=== PATIENT | male | born 1965 | race Caucasian/White ===

== ENCOUNTER 2018-03-26 13:01 | Inpatient (IN) | payer SELFPAY ==
--- NOTE | 2018-03-26 15:13 | ER Document Report ---
ED General - General Mode of Arrival: Ambulatory Information source: Patient TRAVEL OUTSIDE OF THE [place] IN LAST 30 DAYS: No <HOUSTON SALGUERO - Last Filed: 03/26/18 16:45> <JOHNY ZARATE - Last Filed: 03/26/18 21:06> - General Chief Complaint: Leg Swelling Stated Complaint: LEFT LEG PAIN Time Seen by Provider: 03/26/18 14:58 Notes: Patient is a 53-year-old male who presents to the emergency today after signing out AGAINST MEDICAL ADVICE approximately 3-4 hours prior for left lower extremity cellulitis. Patient states he had to go home to check on his animals and that was his reason for signing out. Patient complains of shortness of breath and left lower extremity swelling and erythema. (HOUSTON SALGUERO) - Related Data Allergies/Adverse Reactions: No Known Allergies Allergy (Verified 03/26/18 13:16) Past Medical History - General Information source: Patient - Social History Smoking Status: Former Smoker Cigarette use (# per day): No Chew tobacco use (# tins/day): No Frequency of alcohol use: Occasional Drug Abuse: None Lives with: Family Family History: Reviewed & Not Pertinent Patient has suicidal ideation: No Patient has homicidal ideation: No - Past Medical History Cardiac Medical History: Reports: Hx Hypertension Pulmonary Medical History: Reports: Hx Bronchitis, Hx COPD Renal/ Medical History: Reports: Hx Kidney Stones GI Medical History: Reports: Hx Hiatal Hernia Past Surgical History: Reports: Hx Orthopedic Surgery - Immunizations Immunizations up to date: No Hx Diphtheria, Pertussis, Tetanus Vaccination: Yes <HOUSTON SALGUERO - Last Filed: 03/26/18 16:45> Review of Systems - Review of Systems Constitutional: No symptoms reported EENT: No symptoms reported Cardiovascular: No symptoms reported Respiratory: See HPI, Short of breath Gastrointestinal: No symptoms reported Genitourinary: No symptoms reported Male Genitourinary: No symptoms reported Musculoskeletal: See HPI, Leg swelling - LLE Skin: No symptoms reported Hematologic/Lymphatic: No symptoms reported Neurological/Psychological: No symptoms reported -: Yes All other systems reviewed and negative <HOUSTON SALGUERO - Last Filed: 03/26/18 16:45> Physical Exam <HOUSTON SALGUERO - Last Filed: 03/26/18 16:45> <JOHNY ZARATE - Last Filed: 03/26/18 21:06> - Vital signs Vitals: Temp Pulse Resp BP Pulse Ox 97.9 F 93 20 127/74 H 94 03/26/18 13:08 03/26/18 13:08 03/26/18 13:08 03/26/18 13:08 03/26/18 13:08 - Notes Notes: PHYSICAL EXAM GENERAL: Alert, interacts well. No acute distress. HEAD: Normocephalic, atraumatic. EYES: Pupils equal, round, and reactive to light. Extraocular movements intact. ENT: Oral mucosa moist, tongue midline. NECK: Full range of motion. Supple. Trachea midline. LUNGS: Tachypneic. Clear to auscultation bilaterally, no wheezes, rales, or rhonchi. No respiratory distress. HEART: Tachycardic and regular rhythm. No murmurs, gallops, or rubs. ABDOMEN: Soft, non-tender. Non-distended. Bowel sounds present in all 4 quadrants. No guarding, rigidity, or rebound. EXTREMITIES: Moves all 4 extremities spontaneously. No edema, radial and dorsalis pedis pulses 2/4 bilaterally. No cyanosis. NEUROLOGICAL: Alert and oriented x3. Normal speech. PSYCH: Normal affect, normal mood. SKIN: Warm, dry, normal turgor. Left lower extremity erythema extending past the marked area, mostly over the lateral aspect. 3+ pitting edema to left lower extremity. (HOUSTON SALGUERO) Course <HOUSTON SALGUERO - Last Filed: 03/26/18 16:45> <JOHNY ZARATE - Last Filed: 03/26/18 21:06> - Re-evaluation Re-evalutation: 03/26/18 15:14 Patient had left AGAINST MEDICAL ADVICE approximately 4 hours ago now returns to the emergency department after having taking care of his animals. States he feels somewhat more short of breath than when he left otherwise unchanged. Physical exam shows that he has a dramatic amount of erythema streaking up the lateral aspect of his left leg than 20 cm past the arias indicating the edge of the cellulitis when he left the hospital. Discussed the patient with Dr. Rios who states the only other piece of workup that he needed was a chest x- ray when he left AGAINST MEDICAL ADVICE otherwise he simply needs to be readmitted to continue IV antibiotics. Patient will be admitted to Dr. Rios who was already accepted his admission. He is currently in pit 3 in the emergency department so I will call her back when he is assigned a bed in the main emergency department where she can examine him. He is not due for any doses of IV antibiotics at this time. Blood work was performed this morning and does not need to be repeated at this time per Dr. moore only. (JOHNY ZARATE) - Vital Signs Vital signs: Temp Pulse Resp BP Pulse Ox 97.9 F 86 18 127/74 H 94 03/26/18 13:08 03/26/18 20:26 03/26/18 20:26 03/26/18 13:08 03/26/18 20:26 Discharge <HOUSTON SALGUERO - Last Filed: 03/26/18 16:45> - Discharge Admitting Provider: Hospitalist - [facility] Admitted: Medical Floor <JOHNY ZARATE - Last Filed: 03/26/18 21:06> - Discharge Clinical Impression: Cellulitis of left lower extremity Condition: Fair Disposition: ADMITTED INPATIENT Scribe Attestation: 03/26/18 21:06 I personally performed the services described in the documentation, reviewed and edited the documentation which was dictated to the scribe in my presence, and it accurately records my words and actions. (JOHNY ZARATE) Scribe Documentation - Scribe Written by William:: William Irizarry, 03/26/2018 1651 acting as scribe for :: Gia <HOUSTON SALGUERO - Last Filed: 03/26/18 16:45>
--- NOTE | 2018-03-26 16:13 | RADIOLOGY REPORT (SQ) ---
EXAM DESCRIPTION: CHEST 2 VIEWS COMPLETED DATE/TIME: 03/26/2018 3:53 pm REASON FOR STUDY: SOB COMPARISON: AP chest 03/20/2018 EXAM PARAMETERS: NUMBER OF VIEWS: two views TECHNIQUE: Digital Frontal and Lateral radiographic views of the chest acquired. RADIATION DOSE: NA LIMITATIONS: none FINDINGS: LUNGS AND PLEURA: No opacities, masses or pneumothorax. No pleural effusion. MEDIASTINUM AND HILAR STRUCTURES: No masses or contour abnormalities. HEART AND VASCULAR STRUCTURES: Heart normal size. No evidence for failure. BONES: No acute findings. HARDWARE: None in the chest. OTHER: No other significant finding. IMPRESSION: NO ACUTE RADIOGRAPHIC FINDING IN THE CHEST. TECHNICAL DOCUMENTATION: JOB ID: [id number] [employer]- All Rights Reserved Reading location - IP/workstation name: [email or web address]
[2018-03-26] MEDS ORDERED: IPRATROPIUM/ALBUTEROL 0.5-2.5 MG/3 ML AMPUL NEB PRN (17:45)
[2018-03-26] MEDS ORDERED: ONDANSETRON HCL INJ/PF 4 MG/2 ML SDV IV PRN (17:45)
[2018-03-26] MEDS ORDERED: ACETAMINOPHEN 325 MG TABLET PO PRN (17:45)
[2018-03-26] MEDS ORDERED: OXYCODONE-ACETAMINOPHEN 5-325 MG TABLET PO PRN (17:45)
[2018-03-26] MEDS ORDERED: VANCOMYCIN HCL 0 MG in DEXTROSE 5%-WATER 250 ML IV NR (18:00)
--- NOTE | 2018-03-26 20:11 | PDOC H&P ---
History of Present Illness Admission Date/PCP: 03/26/18 15:42 Patient complains of: Leg pain and swelling History of Present Illness: SENTHIL OCHOA is a 53 year old male This patient was just in this hospital this morning but decided to sign out AGAINST MEDICAL ADVICE as he wanted to go check on his dogs at home. He returns back to the hospital a few hours later back for admission. He was being treated for extensive left leg cellulitis and was initially septic but this has resolved however is still pretty significant cellulitis. He also complains of difficulty breathing with a cough and it had intermittent wheezing. Chest x-ray done today reveals no acute findings. Patient had been on Zithromax for atypical coverage Past Medical History Cardiac Medical History: Reports: Hypertension Pulmonary Medical History: Reports: Bronchitis, Chronic Obstructive Pulmonary Disease (COPD) GI Medical History: Reports: Hiatal Hernia Psychiatric Medical History: Denies: Depression Past Surgical History Past Surgical History: Reports: Orthopedic Surgery Social History Information Source: Patient Lives with: Family Smoking Status: Former Smoker Frequency of Alcohol Use: None Hx Recreational Drug Use: No Drugs: None Hx Prescription Drug Abuse: No Family History Family History: Reviewed & Not Pertinent Parental Family History Reviewed: No Children Family History Reviewed: No Sibling(s) Family History Reviewed.: Unknown Medication/Allergy Home Medications: No Home Medications 03/26/18 Allergies/Adverse Reactions: No Known Allergies Allergy (Verified 03/26/18 13:16) Review of Systems All systems: reviewed and no additional remarkable complaints except as stated Physical Exam Vital Signs: Temp Pulse Resp BP Pulse Ox 97.9 F 93 20 127/74 H 94 03/26/18 13:08 03/26/18 13:08 03/26/18 13:08 03/26/18 13:08 03/26/18 13:08 General appearance: PRESENT: no acute distress, morbidly obese, well-developed, well-nourished Head exam: PRESENT: atraumatic, normocephalic Eye exam: PRESENT: conjunctiva pink, EOMI, PERRLA. ABSENT: scleral icterus Ear exam: PRESENT: normal external ear exam Mouth exam: PRESENT: moist, tongue midline Neck exam: ABSENT: carotid bruit, JVD, lymphadenopathy, thyromegaly Respiratory exam: PRESENT: rhonchi, symmetrical, unlabored. ABSENT: rales, tachypnea, wheezes Cardiovascular exam: PRESENT: RRR. ABSENT: diastolic murmur, rubs, systolic murmur Pulses: PRESENT: normal dorsalis pedis pul Vascular exam: PRESENT: normal capillary refill GI/Abdominal exam: PRESENT: normal bowel sounds, soft. ABSENT: distended, guarding, mass, organolmegaly, rebound, tenderness Rectal exam: PRESENT: deferred Extremities exam: PRESENT: pedal edema, other - Erythematous and swollen left lower extremity extending from the ankle up to the knee with streaking of the in left thigh. ABSENT: calf tenderness, clubbing Neurological exam: PRESENT: alert, awake, oriented to person, oriented to place , oriented to time, oriented to situation, CN II-XII grossly intact. ABSENT: motor sensory deficit Psychiatric exam: PRESENT: appropriate affect, normal mood. ABSENT: homicidal ideation, suicidal ideation Skin exam: PRESENT: dry, intact, warm. ABSENT: cyanosis, rash Results Impressions: Chest X-Ray 03/26/18 15:11 IMPRESSION: NO ACUTE RADIOGRAPHIC FINDING IN THE CHEST. Assessment & Plan - Diagnosis (1) Cellulitis of left lower extremity Is this a current diagnosis for this admission?: Yes Plan: Patient had been treated with initially Unasyn which was subsequently changed to Zosyn and vancomycin added prior to signing out early on today. Cultures have been negative. Doppler sonogram was obtained which revealed no deep- seated infection or thromboembolism. I will change his antibiotic to cefepime as his infection although gradually improving is still pretty much present. His sepsis has resolved and he has spiked a recordable fever on the 16th. He needs a PICC line for vascular access (2) Bronchitis Is this a current diagnosis for this admission?: Yes Plan: Patient likely has underlying COPD. Repeat chest x-ray done today reveals no acute findings. I have added IV steroids as well as bronchodilators and Zithromax for atypical organisms coverage (3) Lymphedema of both lower extremities Is this a current diagnosis for this admission?: Yes Plan: This is chronic underlying his acute infection (4) Morbid obesity Is this a current diagnosis for this admission?: Yes Plan: Patient advised on need to lose weight - Time Time Spent: 30 to 50 Minutes Medications reviewed and adjusted accordingly: Yes Anticipated discharge: Home Within: within 72 hours - Inpatient Certification Based on my medical assessment, after consideration of the patient's comorbidities, presenting symptoms, or acuity I expect that the services needed warrant INPATIENT care.: Yes Medical Necessity: Need for IV Antibiotics
[2018-03-26] MEDS: ALBUTEROL SULFATE 0.083% NEB 2.5 MG/3 ML AMPUL NEB SCH (20:23)
[2018-03-26] MEDS: BENZONATATE 100 MG CAPSULE PO SCH (21:39)
[2018-03-26] MEDS: CEFEPIME 2 GM/D5W RTU 2 GM/50 ML RTUPB IV SCH (21:57)
[2018-03-26] MEDS: METHYLPREDNISOLONE INJ 40 MG/1 ML SDV IV SCH (21:57)
[2018-03-26] MEDS: VANCOMYCIN HCL 1,000 MG in DEXTROSE 5%-WATER 250 ML IV SCH (22:37)
[2018-03-27] MEDS: ALBUTEROL SULFATE 0.083% NEB 2.5 MG/3 ML AMPUL NEB SCH ×4 (01:47→20:00)
[2018-03-27] MEDS: VANCOMYCIN HCL 1,000 MG in DEXTROSE 5%-WATER 250 ML IV SCH ×3 (05:33→22:11)
[2018-03-27] MEDS: METHYLPREDNISOLONE INJ 40 MG/1 ML SDV IV SCH ×3 (05:33→21:28)
[2018-03-27] MEDS: BENZONATATE 100 MG CAPSULE PO SCH ×3 (05:33→21:27)
[2018-03-27 06:50] LABS: HEMOGLOBIN 11.7 g/dL (13.5-17.0); MEAN CORPUSCULAR HEMOGLOBIN 32.5 pg (27.0-33.4); MEAN CORPUSCULAR HGB CONC 34.5 g/dL (32.0-36.0); MEAN CORPUSCULAR VOLUME 94 fl (80-97); PLATELET COUNT 376 10^3/uL (150-450); RED BLOOD COUNT 3.62 10^6/uL (4.35-5.55); RED CELL DISTRIBUTION WIDTH 14.9 % (11.5-14.0); WHITE BLOOD COUNT 9.2 10^3/uL (4.0-10.5)
[2018-03-27 06:55] LABS: ANION GAP 8 (5-19); BLOOD UREA NITROGEN 20 mg/dL (7-20); CALCIUM 8.7 mg/dL (8.4-10.2); CARBON DIOXIDE 26 mmol/L (22-30); CHLORIDE 109 mmol/L (98-107); GLUCOSE 160 mg/dL (75-110); POTASSIUM 4.3 mmol/L (3.6-5.0); SODIUM 142.8 mmol/L (137-145)
[2018-03-27] MEDS: GUAIFENESIN/CODEINE PHOS 100-10 MG/ 5 ML UDC PO PRN (08:08)
--- NOTE | 2018-03-27 09:28 | RADIOLOGY REPORT (SQ) ---
EXAM DESCRIPTION: PICC INSERTION; FLUORO/CV PLACEMENT; U/S GUIDE FOR VASCULAR ACCESS COMPLETED DATE/TIME: 03/27/2018 9:02 am REASON FOR STUDY: custodial antibiotics; IV ABX; IV ACCESS COMPARISON: None. FLUOROSCOPY TIME: 19 seconds 1 digital fluoroscopic chest image and 1 ultrasound images saved to PACS. TECHNIQUE: Fluoroscopic and ultrasound guided PICC placement. LIMITATIONS: None. PROCEDURE: After written consent and assessment were obtained, the patient was brought into the fluo roscopy room and place supine on the table. Ultrasound evaluation of potential access sites were perf ormed. After successfully identifying a patent right basilic vein, the right arm was prepped and drap ed in a sterile fashion along with the ultrasound probe. The entry site was anesthetized with 1% lido felicity. A 21 gauge 7 cm needle was advanced through the skin and into the basilic vein under live ultr asound guidance. An ultrasound image was saved to PACS confirming access site. A .018 guide wire wa s then inserted through the needle and into the venous system. The needle was the removed and an 11 b lade scalpel was used to make a 1cm skin incision. A 5 fr peel-away sheath was advanced over the wir e and into the venous system. A measurement was then made using the existing wire and live fluoroscop ic guidance. The wire was then removed and the trimmed. The PICC was advanced through the peel-away s johny and into the venous system. The peel-away sheath was removed and the catheter was adhered to th e patients arm with a stat lock. The catheter was then aspirated and flushed and a sterile bandage wa s placed over the access site. A fluoroscopic spot image was saved to PACS confirming the catheter t ip within the superior vena cava. IMPRESSION: SUCCESSFUL PLACEMENT OF A 5 FR DUAL LUMEN 35 CM PICC IN THE RIGHT BASILIC VEIN. COMMENT: Patient medication list reviewed: Yes- Quality ID# 130:Eligible professional attests to doc umenting in the medical record they obtained, updated, or reviewed the patient's current medications. . Quality ID 145: Final reports for procedures using fluoroscopy that document radiation exposure carolann cam, or exposure time and number of fluorographic images (if radiation exposure indices are not avail able) Quality ID #76: The patient was prepped and draped using maximum sterile barrier technique including cap, mask, sterile gown, sterile gloves, a large sterile sheet, hand hygiene, and 2% Chlorhexidine fo r cutaneous antisepsis. When ultrasound is used, sterile ultrasound techniques are followed requiring sterile gel and sterile probes. TECHNICAL DOCUMENTATION: JOB ID: [id number] [employer]- All Rights Reserved rev-02/23 Reading location - IP/workstation name: [email or web address] [id number]
[2018-03-27] MEDS: ENOXAPARIN SODIUM INJ 40 MG/0.4 ML DISP.SYRIN SUBCUT SCH (10:58)
[2018-03-27] MEDS: AZITHROMYCIN 250 MG TABLET PO SCH (10:58)
[2018-03-27] MEDS: DOCUSATE SODIUM 100 MG CAPSULE PO SCH (10:59)
[2018-03-27] MEDS: CEFEPIME 2 GM/D5W RTU 2 GM/50 ML RTUPB IV SCH ×2 (10:59→21:38)
[2018-03-27] MEDS: NORMAL SALINE 10 ML SDV (AFTER EACH USE) IV PRN ×2 (11:18→17:34)
--- NOTE | 2018-03-27 17:22 | PDOC PROGRESS REPORT ---
Subjective Progress Note for:: 03/27/18 Subjective:: No adverse events overnight. No new complaints. No cough or shortness of breath. Said he had swelling in his legs for several months. He talked mostly about losing his job a few months ago. He has had no fevers. His appetite is been normal. Reason For Visit: CELLULITIS OF LLE,BRONCHITIS Physical Exam Vital Signs: Temp Pulse Resp BP Pulse Ox 97.9 F 83 18 131/82 H 91 L 03/27/18 11:29 03/27/18 14:30 03/27/18 14:30 03/27/18 11:29 03/27/18 14:30 Intake & Output 03/26/18 03/27/18 03/28/18 06:59 06:59 06:59 Intake Total 300 Balance 300 Weight 124.5 kg General appearance: PRESENT: no acute distress, cooperative, morbidly obese Head exam: PRESENT: atraumatic, normocephalic Respiratory exam: PRESENT: clear to auscultation kaden, symmetrical, unlabored. ABSENT: accessory muscle use, chest wall tenderness, crackles, decreased breath sounds, prolonged expiratory phas, rales, rhonchi, tachypnea, wheezes Cardiovascular exam: PRESENT: RRR, +S1, +S2. ABSENT: clicks, diastolic murmur, gallop, rubs Pulses: PRESENT: normal carotid pulses, normal radial pulses Vascular exam: PRESENT: normal capillary refill GI/Abdominal exam: PRESENT: normal bowel sounds, soft. ABSENT: ascites, diminished bowel sounds, distended, guarding, rebound Extremities exam: PRESENT: pedal edema, +2 edema, other - Hemosiderin deposition diffuse in the lower extremities below the knees bilaterally. He had left leg erythema that had receded substantially from the initial lines of demarcation drawn on admission. He had chronic lymphedema in the lower extremities bilaterally.. ABSENT: calf tenderness, clubbing, joint swelling Psychiatric exam: PRESENT: appropriate affect, normal mood Results Laboratory Results: 03/27/18 06:08 03/27/18 06:08 03/27/18 03/27/18 06:08 06:08 WBC 9.2 RBC 3.62 L Hgb 11.7 L Hct 34.0 L MCV 94 MCH 32.5 MCHC 34.5 RDW 14.9 H Plt Count 376 Sodium 142.8 Potassium 4.3 Chloride 109 H Carbon Dioxide 26 Anion Gap 8 BUN 20 Creatinine 0.92 Est GFR ( Amer) > 60 Est GFR (Non-Af Amer) > 60 Glucose 160 H Calcium 8.7 Impressions: Chest X-Ray 03/26/18 15:11 IMPRESSION: NO ACUTE RADIOGRAPHIC FINDING IN THE CHEST. Guidance Fluoroscopy 03/27/18 00:00 IMPRESSION: SUCCESSFUL PLACEMENT OF A 5 FR DUAL LUMEN 35 CM PICC IN THE RIGHT BASILIC VEIN. Interventional Vascular Procedure 03/27/18 00:00 IMPRESSION: SUCCESSFUL PLACEMENT OF A 5 FR DUAL LUMEN 35 CM PICC IN THE RIGHT BASILIC VEIN. PICC Line Insertion 03/27/18 00:00 IMPRESSION: SUCCESSFUL PLACEMENT OF A 5 FR DUAL LUMEN 35 CM PICC IN THE RIGHT BASILIC VEIN. Assessment & Plan - Diagnosis (1) Cellulitis of left lower extremity Is this a current diagnosis for this admission?: Yes Plan: Continue IV antibiotics for now. Once the erythema has reduced to an acceptable level, will transition to oral antibiotics at that point and he should be able to go home at that time. (2) Lymphedema of both lower extremities Is this a current diagnosis for this admission?: Yes Plan: I recommended that after his infection he get some compression stockings to wear during the day. (3) Morbid obesity Is this a current diagnosis for this admission?: Yes Plan: Recommended lifestyle modification. - Time Time Spent with patient: 25-34 minutes Medications reviewed and adjusted accordingly: Yes Anticipated discharge: Home Within: within 72 hours
[2018-03-28] MEDS: ALBUTEROL SULFATE 0.083% NEB 2.5 MG/3 ML AMPUL NEB SCH ×4 (02:11→20:05)
[2018-03-28] MEDS: GUAIFENESIN/CODEINE PHOS 100-10 MG/ 5 ML UDC PO PRN (03:14)
[2018-03-28] MEDS: BENZONATATE 100 MG CAPSULE PO SCH ×3 (05:36→21:53)
[2018-03-28] MEDS: VANCOMYCIN HCL 1,000 MG in DEXTROSE 5%-WATER 250 ML IV SCH ×3 (06:09→23:07)
[2018-03-28] MEDS: METHYLPREDNISOLONE INJ 40 MG/1 ML SDV IV SCH ×3 (06:13→21:54)
[2018-03-28] MEDS: NORMAL SALINE 10 ML SDV (AFTER EACH USE) IV PRN (06:14)
[2018-03-28 06:40] LABS: VANCOMYCIN,TROUGH 12.8 ug/mL (5.0-20.0)
[2018-03-28] MEDS: DOCUSATE SODIUM 100 MG CAPSULE PO SCH (10:56)
[2018-03-28] MEDS: ENOXAPARIN SODIUM INJ 40 MG/0.4 ML DISP.SYRIN SUBCUT SCH (10:56)
[2018-03-28] MEDS: NORMAL SALINE 10 ML SDV (SCHEDULED) IV SCH ×3 (10:56→21:54)
[2018-03-28] MEDS: CEFEPIME 2 GM/D5W RTU 2 GM/50 ML RTUPB IV SCH ×2 (10:56→21:54)
[2018-03-28] MEDS: AZITHROMYCIN 250 MG TABLET PO SCH (10:56)
[2018-03-28 12:54] LABS: ANION GAP 11 (5-19); BLOOD UREA NITROGEN 22 mg/dL (7-20); CALCIUM 8.3 mg/dL (8.4-10.2); CARBON DIOXIDE 23 mmol/L (22-30); CHLORIDE 109 mmol/L (98-107); GLUCOSE 149 mg/dL (75-110); POTASSIUM 4.1 mmol/L (3.6-5.0); SODIUM 143.2 mmol/L (137-145)
--- NOTE | 2018-03-28 17:56 | PDOC PROGRESS REPORT ---
Subjective Progress Note for:: 04/04/18 Subjective:: No adverse events overnight for urinary complaints. Vital signs been stable. He says he feels like the swelling in his leg has gone down. He said he also feels like the pain is improved. He has had no fevers. Appetite is been normal. Reason For Visit: CELLULITIS OF LLE,BRONCHITIS Physical Exam Vital Signs: Temp Pulse Resp BP Pulse Ox 98.3 F 80 18 135/77 H 92 03/28/18 15:45 03/28/18 15:45 03/28/18 15:45 03/28/18 15:45 03/28/18 15:45 Intake & Output 03/27/18 03/28/18 03/29/18 06:59 06:59 06:59 Intake Total 300 1425 830 Balance 300 1425 830 Weight 124.5 kg 124.3 kg General appearance: PRESENT: no acute distress, well-developed, well-nourished Head exam: PRESENT: atraumatic, normocephalic Respiratory exam: PRESENT: clear to auscultation kaden. ABSENT: rales, rhonchi, wheezes Cardiovascular exam: PRESENT: RRR. ABSENT: diastolic murmur, rubs, systolic murmur Extremities exam: PRESENT: other - He still has chronic persistent lower extremity edema bilaterally, 2+. Erythema in the left lower extremity continues to improve. He also has some wrinkling of the skin around his ankle on his left leg indicating a decrease in the edema. He continues to show chronic hemosiderin deposition bilaterally. Neurological exam: PRESENT: awake, oriented to person, oriented to place, oriented to time Results Laboratory Results: 03/27/18 06:08 03/28/18 06:00 03/28/18 06:00 Sodium 143.2 Potassium 4.1 Chloride 109 H Carbon Dioxide 23 Anion Gap 11 BUN 22 H Creatinine 0.87 Est GFR ( Amer) > 60 Est GFR (Non-Af Amer) > 60 Glucose 149 H Calcium 8.3 L 03/28/18 06:00 NT-Pro-B Natriuret Pep 994 H Impressions: Chest X-Ray 03/26/18 15:11 IMPRESSION: NO ACUTE RADIOGRAPHIC FINDING IN THE CHEST. Guidance Fluoroscopy 03/27/18 00:00 IMPRESSION: SUCCESSFUL PLACEMENT OF A 5 FR DUAL LUMEN 35 CM PICC IN THE RIGHT BASILIC VEIN. Interventional Vascular Procedure 03/27/18 00:00 IMPRESSION: SUCCESSFUL PLACEMENT OF A 5 FR DUAL LUMEN 35 CM PICC IN THE RIGHT BASILIC VEIN. PICC Line Insertion 03/27/18 00:00 IMPRESSION: SUCCESSFUL PLACEMENT OF A 5 FR DUAL LUMEN 35 CM PICC IN THE RIGHT BASILIC VEIN. Assessment & Plan - Diagnosis (1) Cellulitis of left lower extremity Is this a current diagnosis for this admission?: Yes Plan: Continue IV antibiotics for another day. Hopefully we can switch him over to oral antibiotics in the next day or 2. (2) Lymphedema of both lower extremities Is this a current diagnosis for this admission?: Yes Plan: I recommended that after his infection he get some compression stockings to wear during the day. (3) Morbid obesity Is this a current diagnosis for this admission?: Yes Plan: Recommended lifestyle modification. - Time Time Spent with patient: 15-24 minutes Medications reviewed and adjusted accordingly: Yes Anticipated discharge: Home Within: within 48 hours
[2018-03-29] MEDS: ALBUTEROL SULFATE 0.083% NEB 2.5 MG/3 ML AMPUL NEB SCH ×4 (01:20→19:35)
[2018-03-29] MEDS: METHYLPREDNISOLONE INJ 40 MG/1 ML SDV IV SCH ×3 (06:26→21:07)
[2018-03-29] MEDS: VANCOMYCIN HCL 1,000 MG in DEXTROSE 5%-WATER 250 ML IV SCH ×3 (06:26→22:19)
[2018-03-29] MEDS: BENZONATATE 100 MG CAPSULE PO SCH ×3 (06:26→21:07)
[2018-03-29] MEDS: AZITHROMYCIN 250 MG TABLET PO SCH (09:04)
[2018-03-29] MEDS: NORMAL SALINE 10 ML SDV (SCHEDULED) IV SCH ×2 (09:05→21:07)
[2018-03-29] MEDS: ENOXAPARIN SODIUM INJ 40 MG/0.4 ML DISP.SYRIN SUBCUT SCH (09:05)
[2018-03-29] MEDS: CEFEPIME 2 GM/D5W RTU 2 GM/50 ML RTUPB IV SCH ×2 (09:05→21:07)
[2018-03-29] MEDS: DOCUSATE SODIUM 100 MG CAPSULE PO SCH (09:06)
[2018-03-29] MEDS: NORMAL SALINE 10 ML SDV (AFTER EACH USE) IV PRN (15:34)
--- NOTE | 2018-03-29 16:18 | PDOC PROGRESS REPORT ---
Subjective Progress Note for:: 03/29/18 Subjective:: No adverse events overnight. No new complaints. Vital signs stable. He said his leg looks nearly normal now from the standpoint of the swelling. He has had no fevers. His breathing has been comfortable. Reason For Visit: CELLULITIS OF LLE,BRONCHITIS Physical Exam Vital Signs: Temp Pulse Resp BP Pulse Ox 98.3 F 86 17 140/92 H 93 03/29/18 07:29 03/29/18 08:30 03/29/18 08:30 03/29/18 07:29 03/29/18 07:29 Intake & Output 03/28/18 03/29/18 03/30/18 06:59 06:59 06:59 Intake Total 1425 1130 Balance 1425 1130 Weight 124.3 kg 125.2 kg General appearance: PRESENT: no acute distress, obese, well-developed Head exam: PRESENT: atraumatic, normocephalic Respiratory exam: PRESENT: clear to auscultation kaden. ABSENT: rales, rhonchi, wheezes Cardiovascular exam: PRESENT: RRR. ABSENT: diastolic murmur, rubs, systolic murmur GI/Abdominal exam: PRESENT: normal bowel sounds, soft. ABSENT: distended, guarding, mass, organolmegaly, rebound, tenderness Extremities exam: PRESENT: other - He still has some diminishing erythema in his left lower extremity primarily confined below the knee with patches of it breaking up distally proximal to the ankle as well as in the medial aspect of the left leg Results Laboratory Results: 03/27/18 06:08 03/28/18 06:00 03/28/18 06:00 NT-Pro-B Natriuret Pep 994 H Impressions: Chest X-Ray 03/26/18 15:11 IMPRESSION: NO ACUTE RADIOGRAPHIC FINDING IN THE CHEST. Guidance Fluoroscopy 03/27/18 00:00 IMPRESSION: SUCCESSFUL PLACEMENT OF A 5 FR DUAL LUMEN 35 CM PICC IN THE RIGHT BASILIC VEIN. Interventional Vascular Procedure 03/27/18 00:00 IMPRESSION: SUCCESSFUL PLACEMENT OF A 5 FR DUAL LUMEN 35 CM PICC IN THE RIGHT BASILIC VEIN. PICC Line Insertion 03/27/18 00:00 IMPRESSION: SUCCESSFUL PLACEMENT OF A 5 FR DUAL LUMEN 35 CM PICC IN THE RIGHT BASILIC VEIN. Assessment & Plan - Diagnosis (1) Cellulitis of left lower extremity Is this a current diagnosis for this admission?: Yes Plan: Continue with IV antibiotics today he is making some progress but I do not think that he is quite ready yet to be switched over to oral antibiotics. (2) Lymphedema of both lower extremities Is this a current diagnosis for this admission?: Yes Plan: This is a chronic issue. I think it is back to its baseline now. (3) Morbid obesity Is this a current diagnosis for this admission?: Yes Plan: Recommended lifestyle modification. - Time Time Spent with patient: 15-24 minutes Medications reviewed and adjusted accordingly: Yes Anticipated discharge: Home Within: within 72 hours
--- NOTE | 2018-03-29 16:45 | Progress Note ---
Provider Note Provider Note: ID Consult Note Asked to review chart by Pharmacy. Pt not seen or examined. Reviewed chart to include VS, labs, provider reports. Mr. Bacon is a 53 year old man with obesity and BLE lymphedema who was admitted on 03/20/18 with cough, chest discomfort and intermittent wheezing as well as 2 days of L leg swelling and erythema after having recent scratches to his leg. Pt had fever up to 103 F on presentation. Pt's leg was erythematous from ankle to knee on the left with some weeping. CXR was negative for pneumonia. Blood cultures on 03/20 were negative. Pt received the following antibiotics: Unasyn 03/20-03/23, then Zosyn 03/23-03/26, then cefepime 03/26 to present Vancomycin 03/20 one dose, then 03/22 to present 03/29 Azithromycin 500 mg daily from 03/24 to 03/29 Last fever was on 03/24. Pt left to care for dogs at home on 03/26 and returned on 03/26. At present, pt is afebrile, on room air, has clear lungs, breathing comfortably. Pt has had improvement in leg swelling, pain and erythema. Pt has received broad spectrum antibiotic therapy for 9 days at this point. Impression/Recommendations Bronchitis, suspected COPD exacerbation - pt has improved, has received an adequate course of therapy for antibiotics. Recommend discontinuing cefepime, azithromycin, vancomycin. Cellulitis, left leg, nonpurulent - Weeping described but not abscess or other pustular lesion to suggest need for MRSA active therapy. Has had resolution of systemic signs, improvement in local signs of infection. - Recommend de-escalating to Ancef 2 g IV q8h if patient still requires IV therapy and transition to PO Keflex, if needed, at discharge, to complete 10-14 days based on clinical response. Riccardo Molina MD [facility] Infectious Diseases pager [phone]
[2018-03-30] MEDS: ALBUTEROL SULFATE 0.083% NEB 2.5 MG/3 ML AMPUL NEB SCH ×3 (01:48→14:51)
[2018-03-30] MEDS: METHYLPREDNISOLONE INJ 40 MG/1 ML SDV IV SCH (06:22)
[2018-03-30] MEDS: BENZONATATE 100 MG CAPSULE PO SCH (06:22)
[2018-03-30] MEDS: VANCOMYCIN HCL 1,000 MG in DEXTROSE 5%-WATER 250 ML IV SCH (06:22)
[2018-03-30] MEDS: AZITHROMYCIN 250 MG TABLET PO SCH (10:51)
[2018-03-30] MEDS: DOCUSATE SODIUM 100 MG CAPSULE PO SCH (10:51)
[2018-03-30] MEDS: ENOXAPARIN SODIUM INJ 40 MG/0.4 ML DISP.SYRIN SUBCUT SCH (10:52)
[2018-03-30] MEDS: NORMAL SALINE 10 ML SDV (SCHEDULED) IV SCH (11:09)
--- NOTE | 2018-03-30 13:21 | PDOC DISCHARGE SUMMARY ---
General - Admit/Disc Date/PCP Admission Date/Primary Care Provider: 03/26/18 15:42 Discharge Date: 03/30/18 - Discharge Diagnosis (1) Cellulitis of left lower extremity Is this a current diagnosis for this admission?: Yes Summary: He received 9 days of broad-spectrum antibiotic therapy and will finish her course of 14 days of Keflex at home due to his slowly progressive response to treatment. (2) Lymphedema of both lower extremities Is this a current diagnosis for this admission?: Yes Summary: This is a chronic and long-standing problem. Recommended that he use compression stockings while on his feet during the day once the infection resolves. (3) Morbid obesity Is this a current diagnosis for this admission?: Yes Summary: Recommended lifestyle modification - Additional Information Discharge Diet: As Tolerated Discharge Activity: Activity As Tolerated Prescriptions: Cephalexin [Cephalexin 500 MG Capsule] 1 cap PO QID #56 cap Home Medications: Cephalexin [Cephalexin 500 MG Capsule] 1 cap PO QID #56 cap 03/30/18 History of Present Illness History of Present Illness: SENTHIL OCHOA is a 53 year old male Hospital Course Hospital Course: Initially came and then left the ER. He came back couple days later had a fever. He was put on broad-spectrum antibiotics and has been on them now for 8 or 9 days. Patient responded slowly but consistently. He has been afebrile for several days. Patient had a transition over to Keflex for 2 weeks of therapy. He does not have a primary care provider but we will provide him with information with the community clinic. He was instructed to seek medical care if he has a worsening of the redness and swelling or if he develops a fever. His labs and examination were reassuring and he was discharged in good condition. Physical Exam Vital Signs: Temp Pulse Resp BP Pulse Ox 97.9 F 79 16 121/89 H 94 03/30/18 07:27 03/30/18 08:33 03/30/18 08:33 03/30/18 07:27 03/30/18 08:33 Intake & Output 03/29/18 03/30/18 03/31/18 06:59 06:59 06:59 Intake Total 1130 900 Balance 1130 900 Weight 125.2 kg 124.6 kg General appearance: PRESENT: no acute distress, well-developed, well-nourished Respiratory exam: PRESENT: clear to auscultation kaden. ABSENT: rales, rhonchi, wheezes Cardiovascular exam: PRESENT: RRR. ABSENT: diastolic murmur, rubs, systolic murmur Vascular exam: PRESENT: normal capillary refill GI/Abdominal exam: PRESENT: normal bowel sounds, soft. ABSENT: distended, guarding, mass, organolmegaly, rebound, tenderness Extremities exam: PRESENT: full ROM, other - He had some faint erythema with areas of clearing and reduce generalized swelling in the left lower extremity below the knee. ABSENT: calf tenderness, clubbing, pedal edema Neurological exam: PRESENT: alert, awake, oriented to person, oriented to place , oriented to time Results Laboratory Results: 03/27/18 06:08 03/28/18 06:00 03/28/18 06:00 NT-Pro-B Natriuret Pep 994 H Impressions: Chest X-Ray 03/26/18 15:11 IMPRESSION: NO ACUTE RADIOGRAPHIC FINDING IN THE CHEST. Guidance Fluoroscopy 03/27/18 00:00 IMPRESSION: SUCCESSFUL PLACEMENT OF A 5 FR DUAL LUMEN 35 CM PICC IN THE RIGHT BASILIC VEIN. Interventional Vascular Procedure 03/27/18 00:00 IMPRESSION: SUCCESSFUL PLACEMENT OF A 5 FR DUAL LUMEN 35 CM PICC IN THE RIGHT BASILIC VEIN. PICC Line Insertion 03/27/18 00:00 IMPRESSION: SUCCESSFUL PLACEMENT OF A 5 FR DUAL LUMEN 35 CM PICC IN THE RIGHT BASILIC VEIN. Qualifiers - * PATIENT BEING DISCHARGED WITH ANY OF THE FOLLOWING DIAGNOSIS: No
[2018-03-30 14:00] VITALS: BP 135/89
== END 2018-03-30 15:35 | disposition home or self-care (01) | DRG 603 ==
LOC: ER 13:01 → EH 15:42 → 2S 19:39
PROVIDERS: ADMIT Internal Medicine; ATTEND Internal Medicine
PROC: 3E0F73Z Introduction of Anti-inflammatory into Respiratory Tract, Via Natural or Artificial Opening (ICD-10-PCS; principal; 2018-03-26)
PROC: 02HV33Z Insertion of Infusion Device into Superior Vena Cava, Percutaneous Approach (ICD-10-PCS; 2018-03-27)
PROC: B548ZZA Ultrasonography of Superior Vena Cava, Guidance (ICD-10-PCS; 2018-03-27)
DX: L03.116 Cellulitis of left lower limb (principal); E66.01 Morbid (severe) obesity due to excess calories; I89.0 Lymphedema, not elsewhere classified; I10 Essential (primary) hypertension; J44.9 Chronic obstructive pulmonary disease, unspecified; K44.9 Diaphragmatic hernia without obstruction or gangrene; Z68.39 Body mass index [BMI] 39.0-39.9, adult; Z87.891 Personal history of nicotine dependence
CPT/HCPCS: 36415; 36569; 71046; 76937; 77001; 80048; 80202; 83880; 85027; 87040; 94640; 99284; J0692; J1642; J1650; J2920; J3370; J3490; J7060

== ENCOUNTER → 2018-09-18 | Outpatient (CLI) | payer OTHER ==
[2018-09-18 12:29] LABS: ABSOLUTE EOSINOPHILS # (AUTO) 0.1 10^3/uL (0.0-0.6); ABSOLUTE LYMPHOCYTES (AUTO) 1.3 10^3/uL (0.5-4.7); ABSOLUTE MONOCYTES (AUTO) 0.5 10^3/uL (0.1-1.4); ABSOLUTE NEUT (AUTO) 3.7 10^3/uL (1.7-8.2); BASOPHILS % (AUTO) 0.3 % (0-2); EOSINOPHILS % (AUTO) 1.7 % (0-6); HEMATOCRIT 43.6 % (37.9-51.0); HEMOGLOBIN 15.4 g/dL (13.5-17.0); LYMPHOCYTES % (AUTO) 23.5 % (13-45); MEAN CORPUSCULAR HEMOGLOBIN 32.1 pg (27.0-33.4); MEAN CORPUSCULAR HGB CONC 35.2 g/dL (32.0-36.0); MEAN CORPUSCULAR VOLUME 91 fl (80-97); MONOCYTES % (AUTO) 9.1 % (3-13); PLATELET COUNT 200 10^3/uL (150-450); RED BLOOD COUNT 4.79 10^6/uL (4.35-5.55); RED CELL DISTRIBUTION WIDTH 14.2 % (11.5-14.0); SEGMENTED NEUTROPHILS % (AUTO) 65.4 % (42-78); TOTAL CELLS COUNTED % (AUTO) 100 %; WHITE BLOOD COUNT 5.6 10^3/uL (4.0-10.5)
[2018-09-18 13:03] LABS: IRON(TIBC) 66.1 ug/dL (49-181)
== END ==
LOC: CCC 11:48
DX: Z00.00 Encounter for general adult medical examination without abnormal findings (principal); D64.9 Anemia, unspecified
CPT/HCPCS: 36415; 82728; 83036; 83540; 83550; 84153; 84443; 85025

== ENCOUNTER 2019-03-22 11:23 | Emergency (ER) | payer BC, OTHER ==
--- NOTE | 2019-03-22 11:50 | ER Document Report ---
ED Medical Screen (RME) - General Chief Complaint: Laceration Stated Complaint: LACERATION TO RIGHT INDEX FINGER Time Seen by Provider: 03/22/19 11:43 Primary Care Provider: [facility] [Primary Care Provider] - Follow up as needed Mode of Arrival: Ambulatory Information source: Patient TRAVEL OUTSIDE OF THE [place] IN LAST 30 DAYS: No - Related Data Allergies/Adverse Reactions: No Known Allergies Allergy (Verified 03/26/18 13:16) Past Medical History - Past Medical History Cardiac Medical History: Reports: Hx Hypertension Pulmonary Medical History: Reports: Hx Bronchitis, Hx COPD Renal/ Medical History: Reports: Hx Kidney Stones. Denies: Hx Peritoneal Dialysis GI Medical History: Reports: Hx Hiatal Hernia Psychiatric Medical History: Denies: Hx Depression Past Surgical History: Reports: Hx Orthopedic Surgery - Immunizations Immunizations up to date: No Hx Diphtheria, Pertussis, Tetanus Vaccination: Yes Physical Exam - Vital signs Vitals: Temp Pulse Resp BP Pulse Ox 98.3 F 99 20 149/99 H 96 03/22/19 11:27 03/22/19 11:27 03/22/19 11:27 03/22/19 11:27 03/22/19 11:27 Course - Vital Signs Vital signs: Temp Pulse Resp BP Pulse Ox 98.3 F 99 20 149/99 H 96 03/22/19 11:27 03/22/19 11:27 03/22/19 11:27 03/22/19 11:27 03/22/19 11:27 Doctor's Discharge - Discharge Referrals: R[facility] ESCOBAR [Primary Care Provider] - Follow up as needed
--- NOTE | 2019-03-22 12:26 | RADIOLOGY REPORT (SQ) ---
EXAM DESCRIPTION: FINGER RIGHT COMPLETED DATE/TIME: 03/22/2019 12:16 pm REASON FOR STUDY: cut finger on table saw COMPARISON: None. NUMBER OF VIEWS: Three views. TECHNIQUE: AP, lateral, and oblique images acquired of the right second finger. LIMITATIONS: None. FINDINGS: MINERALIZATION: Normal. BONES: Comminuted fracture of the distal tuft of the 2nd digit consistent with clinical history. SOFT TISSUES: Associated soft tissue injury. OTHER: No other significant finding. IMPRESSION: Comminuted tuft fracture of the 2nd digit with associated soft tissue injury. COMMENT: SITE OF TRAUMA/COMPLAINT MARKED/STAMP COMPLETED: NOT APPLICABLE. TECHNICAL DOCUMENTATION: JOB ID: [id number] [employer]- All Rights Reserved Reading location - IP/workstation name: [email or web address]
[2019-03-22] MEDS ORDERED: LIDOCAINE 1% INJ-PF (10 MG/ML) 30 ML SDV INJ ONE (14:24)
--- NOTE | 2019-03-22 14:25 | ER Document Report ---
ED Hand/Wrist Injury - General Chief Complaint: Laceration Stated Complaint: LACERATION TO RIGHT INDEX FINGER Time Seen by Provider: 03/22/19 11:43 Primary Care Provider: [facility] [Provider Group] - Follow up as needed [facility]NO [facility]AL MD] - Follow up as needed Mode of Arrival: Ambulatory Information source: Patient Notes: 54-year-old male presented to ED for a open comminuted tuft fracture to the right index finger. He was seen in pit with x-rays already completed. The skin is very ripped up from the saw. There is no active bleeding noted at time of sutures. TRAVEL OUTSIDE OF THE [place] IN LAST 30 DAYS: No - HPI Injury to: Index finger Onset: Just prior to arrival Where: Home Timing: Still present Quality of pain: Achy Severity: Moderate Pain Level: 3 Context: Other - Cut end of index finger with saw - Related Data Allergies/Adverse Reactions: No Known Allergies Allergy (Verified 03/26/18 13:16) Past Medical History - General Information source: Patient - Social History Smoking Status: Never Smoker Cigarette use (# per day): No Chew tobacco use (# tins/day): No Smoking Education Provided: No Frequency of alcohol use: None Drug Abuse: None Lives with: Alone Family History: Reviewed & Not Pertinent Patient has suicidal ideation: No Patient has homicidal ideation: No - Past Medical History Cardiac Medical History: Reports: Hx Hypertension Pulmonary Medical History: Reports: Hx Bronchitis, Hx COPD EENT Medical History: Reports: None Neurological Medical History: Reports: None Renal/ Medical History: Reports: Hx Kidney Stones. Denies: Hx Peritoneal Dialysis Malignancy Medical History: Reports None GI Medical History: Reports: Hx Hiatal Hernia Musculoskeletal Medical History: Reports Hx Musculoskeletal Deformity, Reports Hx Musculoskeletal Trauma Skin Medical History: Reports Hx Cellulitis Psychiatric Medical History: Reports: None Traumatic Medical History: Reports: Hx Fractures - tuft right index fracture Past Surgical History: Reports: Hx Orthopedic Surgery - right ankle - Immunizations Immunizations up to date: No Hx Diphtheria, Pertussis, Tetanus Vaccination: Yes - 03/22/2019 Review of Systems - Review of Systems Constitutional: No symptoms reported EENT: No symptoms reported Cardiovascular: No symptoms reported Respiratory: No symptoms reported Gastrointestinal: No symptoms reported Genitourinary: No symptoms reported Male Genitourinary: No symptoms reported Musculoskeletal: Other - Open tuft fracture right index finger Skin: No symptoms reported Hematologic/Lymphatic: No symptoms reported Neurological/Psychological: No symptoms reported Physical Exam - Vital signs Vitals: Temp Pulse Resp BP Pulse Ox 98.3 F 99 20 149/99 H 96 03/22/19 11:27 03/22/19 11:27 03/22/19 11:27 03/22/19 11:27 03/22/19 11:27 Interpretation: Normal - General General appearance: Appears well, Alert - HEENT Head: Normocephalic, Atraumatic Eyes: Normal Pupils: PERRL - Respiratory Respiratory status: No respiratory distress Chest status: Nontender Breath sounds: Normal Chest palpation: Normal - Cardiovascular Rhythm: Regular Heart sounds: Normal auscultation Murmur: No - Abdominal Inspection: Normal Distension: No distension Bowel sounds: Normal Tenderness: Nontender Organomegaly: No organomegaly - Back Back: Normal, Nontender - Extremities General upper extremity: Normal ROM, Normal temperature General lower extremity: Normal inspection, Nontender, Normal color, Normal ROM, Normal temperature, Normal weight bearing. No: Sandy's sign Hand: Tender, Laceration - Macerated end of the right index finger due to a table saw injury causing a open tuft fracture wound 4 cm long threaded skin, No evidence of human bite, Swelling. No: Nail injury, No evidence of FB - Neurological Neuro grossly intact: Yes Cognition: Normal Orientation: AAOx4 Lanie Coma Scale Eye Opening: Spontaneous Friendship Coma Scale Verbal: Oriented Friendship Coma Scale Motor: Obeys Commands Lanie Coma Scale Total: 15 Speech: Normal Motor strength normal: LUE, RUE, LLE, RLE Sensory: Normal - Psychological Associated symptoms: Normal affect, Normal mood - Skin Skin Temperature: Warm Skin Moisture: Dry Skin Color: Normal Course - Vital Signs Vital signs: Temp Pulse Resp BP Pulse Ox 97.5 F 82 16 138/90 H 98 03/22/19 15:41 03/22/19 15:41 03/22/19 15:41 03/22/19 15:41 03/22/19 15:41 - Diagnostic Test Radiology reviewed: Image reviewed, Reports reviewed Procedures - Immobilization Right Distal Finger 2nd digit Time completed: 15:38 Pre-Proc Neuro Vasc Exam: Normal Immobilizer type: Finger protection Performed by: PCT Post-Proc Neuro Vasc Exam: Unchanged from pre-exam Alignment checked and good: No - open distal tuft - Laceration/Wound Repair Right Distal Finger 2nd digit Time completed: 15:36 Wound length (cm): 4 Wound's Depth, Shape: Linear, Irregular, Contused tissue - saw wound, Other - open tuft fracture Laceration pre-procedure: Sterile PPE donned, Sterile drapes applied, Shur-Clens applied Anesthetic type: 1% Lidocaine Volume Anesthetic (mLs): 10 - digital block Wound explored: Contaminated, Foreign body removed Irrigated w/ Saline (mLs): 500 Wound Debrided: Moderate Wound Repaired With: Sutures Suture Size/Type: 5:0, Ethilon Number of Sutures: 8 Layer Closure?: No Post-procedure wound care: Sterile dressing applied, Splint applied Complications: Yes - saw wound debrided Discharge - Discharge Clinical Impression: Open fracture of tuft of distal phalanx of finger, Laceration of right index finger with complication Condition: Stable Disposition: HOME, SELF-CARE Additional Instructions: Tuft Fracture of the Finger The tip of your finger is broken (beneath the finger nail). This fracture is more serious because it is an open fracture. This means there is an opening from the outside of your finger to the fracture and needs to be followed up by us orthopedic surgeon. You can expect the bone to heal within three to four weeks. Elevating and ice packing the finger will help greatly in reducing pain and swelling. Please be sure to follow-up with the orthopedic surgeon by telephone within the next 24 to 48 hours or on Monday as today is Monday to schedule follow-up appointment. Please keep the finger clean. Hand Laceration A laceration on the hand can present special problems. It may be difficult to keep the wound dry. Motion of the fingers can disturb the healing edges. Your work may involve exposure to damaging chemicals or water. Keep the wound clean and dry. If you can't keep the cut dry, undisturbed, and free of chemical exposure, please discuss this with the doctor. If any water or chemical gets onto the dressing, remove it, blot the wound dry, then apply a fresh bandage. Dressings should be changed every day. If you feel the stitches pulling as you move the hand, a splint or other form of protection is needed. If any signs of infection occur (swelling, redness, increasing tenderness, red streaks, tender lumps in the armpit, or fever), see the doctor immediately. SOAP CLEANSING: Gently wash the wound daily using a mild soap (like Ivory, Phisoderm, Neutrogena). Use warm water, rubbing gently until all debris, ooze, and crusting have been washed from the wound. Allow to dry briefly (about 10 minutes) after cleaning. Repeat this cleansing at least three times a day for the first two days and then once or twice a day. ANTIBIOTIC OINTMENT PROTECTION: Your wounds are such that dressing them is not practical or optional. After cleansing, you should apply a thin coating of antibiotic ointment (Bacitracin, not Neosporin) to the wounds at least three times daily. This lessens infection risk, and may decrease the amount of scarring. Use a q-tip or dull butter knife, not your finger, to apply this ointment. Any debris or ooze which builds up in the ointment should be gently rubbed off with a sterile gauze pad. Harder crusting may need to be gently scrubbed off with a clean wash cloth with soap and warm water, perhaps applying a warm, wet wash cloth to the wound for ten minutes first. Development of redness, severe itching, or blistering may mean allergy to the ointment. See the doctor. TETANUS IMMUNIZATION GIVEN: You have been given an immunization against tetanus. Please record this in your records. In general, a booster is needed only once every 10 years. The tetanus shot protects against tetanus or "lockjaw," which is a complication of certain wound infections (the tetanus shot cannot protect against the actual infection). The immunization site may become warm and red due to local reaction. If this occurs, apply warm compresses and take aspirin or ibuprofen to reduce inflammation and discomfort. Return for evaluation if the reaction becomes severe. PROPHYLACTIC ANTIBIOTIC: The antibiotics which have been prescribed are designed to decrease the risk of infection. Only certain types of wounds benefit from this -- the typical cut, scrape, or burn DOES NOT require antibiotics. Of course, infection can still occur despite the use of prophylactic antibiotics. Your wound will heal with less chance of an infectious complication if you take the medication as directed. The most important dose is the FIRST dose, so don't delay filling the prescription! Need to call the orthopedic surgeon as soon as possible to have schedule follow- up for this fracture underneath of your laceration. It is very important that they follow this up to ensure no infection into the bone. This is not a simple fracture and it is not a simple laceration there is a laceration over top of the fracture involving the fracture. FOLLOW-UP CARE: Please return in ___3__ days for an infection check . Your sutures should be removed in __10___ days. To facilitate a timely removal of your sutures, you may return to the Emergency Department at [facility]. You do not need to call for an appointment, but the best time to come in for suture removal is early in the morning. If you have been referred to another physician for follow-up care, call that physicians office for an appointment as you were instructed. If you experience a significant change in your laceration, or if you are concerned there may be an infection (swelling, redness, drainage, increasing tenderness, red streaks, tender lumps in the armpit or groin above the laceration, or fever), return to the Emergency Department immediately re-evaluation. Prescriptions: Cephalexin Monohydrate [Keflex 500 mg Capsule] 500 mg PO Q6H 5 Days capsule Forms: Elevated Blood Pressure [facility]: [facility] [NO LOCAL MD] - Follow up as needed [facility] [Provider Group] - Follow up as needed
[2019-03-22] MEDS ORDERED: CEPHALEXIN 500 MG CAPSULE PO ONE (15:26)
[2019-03-22] MEDS ORDERED: DIPH/PERTUSS(ACELL)/TETANUS VAC/PF 0.5 ML SYR (>=10YO) IM ONE (15:41)
[2019-03-22 15:42] VITALS: BP 138/90
== END 2019-03-22 15:58 | disposition home or self-care (01) ==
LOC: ER 11:23
DX: S62.630B Displaced fracture of distal phalanx of right index finger, initial encounter for open fracture (principal); W29.8XXA Contact with other powered hand tools and household machinery, initial encounter; Y92.009 Unspecified place in unspecified non-institutional (private) residence as the place of occurrence of the external cause; I10 Essential (primary) hypertension; J44.9 Chronic obstructive pulmonary disease, unspecified
CPT/HCPCS: 99283; 90471; 73140; 90715; 12002; J3490